=== PATIENT | male | born 1955 | race Hispanic/Latino ===

== ENCOUNTER 2017-06-12 12:40 | Observation (INO) ==
[2017-06-12] MEDS ORDERED: NITROGLYCERIN 0.4 MG SL TAB (BOTTLE OF 3) SL PRN (12:55)
[2017-06-12] MEDS ORDERED: NORMAL SALINE 10 ML SYRINGE FLUSH IVP PRN ×2 (12:55→14:30)
[2017-06-12] MEDS ORDERED: ASPIRIN 81 MG (BABY) CHEWABLE TABLET PO ONE (12:55)
--- NOTE | 2017-06-12 12:58 | EKG ---
[address] [address] Measurements Intervals [place] Rate: 81 P: 46 NV: 156 QRS: 11 QRSD: 105 T: 203 QT: 372 QTc: 409 Interpretive Statements SINUS RHYTHM WANDERING BASELINE NONSPECIFIC T-WAVE ABNORMALITY No previous ECG available for comparison Electronically Signed On 06-15-17 15:01:39 MDT by Gianni Almonte [id number]
[2017-06-12 13:10] LABS: BASOPHILS # (AUTO) 0.02 10*3/UL; BASOPHILS % (AUTO) 0.2 % (0-1); EOSINOPHILS # (AUTO) 0.34 10*3/UL; EOSINOPHILS % (AUTO) 4.1 % (0-8); Hematocrit [HCT] 51.2 % (42.0-52.0); Hemoglobin [HGB] 17.5 g/dL (14.0-18.0); LYMPHOCYTES # (AUTO) 2.74 10*3/uL; MEAN CORPUSCULAR HEMOGLOBIN 28.5 PG (27-31); MEAN CORPUSCULAR HGB CONC 34.2 g/dL (33-37); MEAN CORPUSCULAR VOLUME 83.5 FL (80-90); MEAN PLATELET VOLUME 9.8 FL (7.4-12.2); MONOCYTES # (AUTO) 0.51 10*3/UL (0.3-0.8); MONOCYTES % (AUTO) 6.2 % (5-15); NEUTROPHILS # (AUTO) 4.65 10*3/UL; RED BLOOD COUNT 6.13 10^6/uL (4.70-6.10)
[2017-06-12 13:12] LABS: PLATELET MORPHOLOGY COMMENT NORMAL MORPHOLOGY (NORM); RBC MORPHOLOGY COMMENT NORMAL MORPHOLOGY (NORM); WBC MORPHOLOGY COMMENT NORMAL MORPHOLOGY (NORM)
[2017-06-12] MEDS ORDERED: Sodium Chloride 0.9% 1,000 ML PRIMARY IV ONE (13:15)
[2017-06-12 13:17] LABS: MAGNESIUM 1.8 mg/dL (1.6-2.4)
--- NOTE | 2017-06-12 13:21 | DI ---
XR CXR 1VW,06/12/2017 12:56 PM: Clinical History: Chest pain Previous Exam: None at this facility. Findings: A single frontal radiograph of the chest is obtained, and demonstrate clear lungs. The cardiomediasti num and bony thorax are unremarkable. Overlying EKG leads are seen. Patient is status post sternotomy . Impression: No acute cardiopulmonary disease.
[2017-06-12 13:24] LABS: BLOOD UREA NITROGEN 15 mg/dL (7-22); BUN/CREATININE RATIO 16.66 (6-20); SERUM ALBUMIN 4.3 g/dL (3.5-4.8)
--- NOTE | 2017-06-12 13:28 | PDOC ---
Chest Pain HPI - General Chief Complaint: Chest Pain Stated Complaint: chest pain Date Seen by Provider: 06/12/17 Time Seen by Provider: 12:40 Source: Patient Exam Limitations: POSITIVE: No limitations Treatment Prior to Arrival: REPORTS: None Nurse's Notes Reviewed & Considered: Yes - History of Present Illness Initial Comments: The patient is a 61-year-old male who presents to the emergency department with chest pain. He states that he had onset of chest pain this morning at about 10 or 10:30. He states that the pain occurred while he was at rest. Initially the pain was about a 4-5 out of 10 however has intensified to about an 8 out of 10 currently. He does have some associated shortness of breath and lightheadedness. He denies any increased pain with taking a breath. He does report that he has had some intermittent similar chest pains for the past several weeks generally occurring at rest. The previous pains lasted less than a minute. He does have a known history of coronary artery disease and is status post bypass surgery in 2000. He has had multiple stents as well. He does take aspirin and Plavix and did take 1 baby aspirin this morning. The pain is primarily located in the center of his chest with some radiation to his left arm. He denies any increased pain or swelling in his legs. - Patient Home Medications Home Medications: Home Medications Aspirin 81 mg PO DAILY tab 02/13/16 Atorvastatin Calcium 0.5 tab PO BEDTIME tab 02/13/16 Carvedilol 1 tab PO BID tab 02/13/16 Clopidogrel Bisulfate [Clopidogrel] 1 tab PO DAILY tab 02/13/16 Clotrimazole 1 applic TOPICAL QD #1 tube 02/13/16 Fluoxetine HCl 1 cap PO DAILY cap 02/13/16 Lamotrigine [Lamotrigine Er] 100 mg PO DAILY tab 02/13/16 Pantoprazole Sodium 1 tab PO DAILY tab 02/13/16 Valsartan [Diovan] 80 mg PO DAILY tab 02/13/16 - Patient Allergies Allergies/Adverse Reactions: Allergies 3 Allergy/AdvReac Type Severity Reaction Status Date / Time cephalexin monohydrate Allergy Intermediate RASH Verified 06/12/17 12:56 [From Keflex] Past Medical History Past Medical History Reviewed: Other (please comment) (The patient admits a history of diabetes as well as coronary artery disease with previous bypass and stents) ROS - Limitations ROS Limitations: No Limitations Constitution: DENIES: Chills, Fever, Diaphoresis Cardiovascular: REPORTS: Chest Pain. DENIES: Heart Racing, Heart Palpitations, Edema Respiratory: REPORTS: Shortness Of Breath. DENIES: Hurts To Breathe Neurological: REPORTS: Denies Neuro Symptoms Gastrointestinal: REPORTS: Denies GI Symptoms Endocrine: REPORTS: Denies Symptoms Musculoskeletal: REPORTS: Denies MS Symptoms Eyes: REPORTS: Denies Symptoms ENT: REPORTS: Denies Symptoms Skin: REPORTS: Denies Skin Symptoms. DENIES: Rash Chest Pain PE - General Appearance General Appearance: REPORTS: Alert, Cooperative, No Acute Distress - HEENT HEENT: POSITIVE: Head Inspection Nml, Eyes Inspection Nml, Ears Inspection Nml, Nose Inspection Nml, Pharynx Inspect. Nml - Neck Neck: REPORTS: Normal Inspection. DENIES: JVD Present - Respiratory Respiratory: REPORTS: No Respiratory Distress, Breath Sounds Normal - Cardiovascular Cardiovascular: REPORTS: Regular Rate and Rhythm, Heart Sounds Normal Peripheral Pulses: Dorsalis-pedis (R): 2+, Dorsalis-pedis (L): 2+ - Skin Skin: REPORTS: Intact, No Rash - Extremities Extremity: Normal ROM: (All Extremities), Normal Inspection: (All Extremities) - Neurological / Psychological Neurological: POSITIVE: Oriented X3, Motor Normal, Sensation Normal Chest Pain Progress - Results Reviewed by me Xrays/CTs/US Reviewed by me: Yes Discussed with Radiologist: Yes Radiology Findings: Chest x-ray shows no acute cardiopulmonary abnormality per radiologist. Lab Results Reviewed by Me: Yes CBC and BMP: 06/12/17 12:49 06/12/17 12:49 EKG Interpreted/Reviewed By Me:: Yes EKG Interpretation:: POSITIVE: Normal Sinus Rhythm, Normal Rate, Normal QRS, Normal ST/T, Other (No obvious ST segment or T-wave changes on his EKG, no previous are available for comparison) - Patient's Progress MDM / ED Course: On arrival the patient's pain was approximately 8 out of 10. His blood pressure was elevated at 170/90. His initial EKG shows no obvious ST segment changes. He did receive 4 baby aspirin as well as sublingual nitroglycerin. His pain persisted however did come down slightly after administration of nitroglycerin. His chest x-ray shows normal heart size and normal lung knowles with no acute cardiopulmonary findings per radiologist. His lab work is all essentially unremarkable with a normal d-dimer and normal troponin, blood sugar is mildly elevated in the 170s. His blood pressure did come down into the 140s systolic however the diastolic remained elevated at 114 after nitroglycerin. The patient does admit that he has not taken his carvedilol for the past couple of days as he was waiting for his prescription to come in the mail. All these findings are discussed with the patient. It was recommended that the patient be admitted for continued cardiac monitoring. Dr. Calero has agreed to admit the patient and the patient is in agreement with this plan. - Consult Counseled: POSITIVE: Patient, Family, RE: Lab Results, RE: Radiology Results, RE : DX, RE: Need for F/U Patient Care Time - Estimated PCT Patient Care Time (In Minutes): 35 Vital Signs - Recent Vital Signs Vital Signs: Vital Signs (Last 8 hours) Temp Pulse Resp BP Pulse Ox 06/12/17 12:54 97.4 F 82 20 170/87 95 - VS Reviewed Vital Signs Reviewed: Yes Discharge Clinical Impression: Chest pain Discharge Disposition: Admit to Observation Condition: Fair Follow Up With: NONE,NONE [Primary Care Provider] -
--- NOTE | 2017-06-12 14:28 | PDOC ---
HPI - History of Present Illness Chief Complaint: Chest pain History of Present Illness: This very nice 61-year-old gentleman past medical history significant for coronary artery disease and is status post bypass surgery in 2000. He also has multiple stents. He does takes aspirin and Plavix and cholesterol medication. He comes to the ER because of new onset of chest pain this morning around 10:00 was at rest started mild around 3 [place] and intensified to 8-9 out of 10 and have some shortness of breath and lightheadedness associated with it but no radiation to left arm or neck he states that this happened also intermittently for the last couple weeks he will come into the hospital to rule out a Lexiscan stress test is chest pain-free at present time Past Medical History Medical History: Coronary artery disease, GERD, diabetes Surgical History: Bypass surgery in 2000 and multiple stents Tobacco Use: Former Smoker In the Past 12 Months, Have Used or Abuse Any of the Following Substance: None Medication / Allergies Home Medications: Home Medications Medication Instructions Recorded Confirmed Type Aspirin 81 mg PO DAILY tab 02/13/16 06/12/17 History Atorvastatin Calcium 0.5 tab PO BEDTIME tab 02/13/16 06/12/17 History Carvedilol 1 tab PO BID tab 02/13/16 06/12/17 History Clopidogrel Bisulfate [Clopidogrel] 1 tab PO DAILY tab 02/13/16 06/12/17 History Clotrimazole 1 applic TOPICAL QD #1 tube 02/13/16 06/12/17 History Fluoxetine HCl 1 cap PO DAILY cap 02/13/16 06/12/17 History Lamotrigine [Lamotrigine Er] 100 mg PO DAILY tab 02/13/16 06/12/17 History Pantoprazole Sodium 1 tab PO DAILY tab 02/13/16 06/12/17 History Valsartan [Diovan] 80 mg PO DAILY tab 02/13/16 06/12/17 History Insulin Detemir [Levemir] 12 unit SUBCUT BID 06/12/17 06/12/17 History Allergies/Adverse Reactions: Allergies 3 Allergy/AdvReac Type Severity Reaction Status Date / Time cephalexin monohydrate Allergy Intermediate RASH Verified 06/12/17 12:56 [From Keflex] Review of Systems - Review of Systems All Systems: Reviewed & No Additional Complaints Except as Stated - Eye Exam Eye Exam: REPORTS: Negative System Review - Ear/Nose Exam Ear/Nose Exam: REPORTS: Negative System Review - Respiratory Respiratory: DENIES: Negative System Review, Cough, Sputum, Dyspnea At Rest, Dyspnea with Exertion, Pleuritic Pain, Hemoptysis, Wheezing, Other, See HPI - Cardiovascular Cardiovascular: REPORTS: Chest Pain. DENIES: Edema, Syncope, Palpitations - Gastrointestinal Gastrointestinal / Abdominal: DENIES: Negative System Review, Nausea, Vomiting, Diarrhea, Constipation, Abdominal Pain, Bloody Stool, Poor Appetite, Heartburn, Regurgitation, Bloating, Lactose Intolerance, Melena, Bright Red Blood per Rectum, Other, See HPI - Genitourinary Genitourinary: REPORTS: Negative System Review - Neurological Neurologic: DENIES: Negative System Review, Headache, Numbness/Paresthesia, Tremors, Weakness, Seizures, Head Trauma, LOC, Dizziness, Confusion, Memory Loss , Difficulty Walking, Incoordination, Other, See HPI Exam - Vitals Vital Signs: Vital Signs Temperature 97.4 F Pulse Rate [Pulse Oximeter 82 Left] Respiratory Rate 20 Blood Pressure [Right Radial 170/87 Artery] Pulse Ox 95 Oxygen Delivery Method Room Air Height 5 ft 6 in Weight 250 lb - General General Appearance: No Acute Distress, Cooperative - Head Head Exam: Normocephalic, Atraumatic - Eye Eye Exam: POSITIVE: Normal Appearance, PERRL, EOMI - Respiratory Respiratory Exam: POSITIVE: Clear to Auscultation - Bilaterally, Breathing Non Labored, Normal To Percussion - Cardiovascular Cardiovascular Exam: POSITIVE: RRR, No Murmur, No Clicks - GI/Abdominal GI/Abdominal Exam: POSITIVE: Non Tender, Non Distended, Soft - Extremities Extremities Exam: POSITIVE: No Clubbing Present, No Edema Present, No Cyanosis Present - Neurological Neurological Exam: POSITIVE: Alert, Oriented x 3, CN II-XII Intact, No Facial Droop, Speech Intact / Clear Results - Labs CBC and BMP: 06/12/17 12:49 06/12/17 12:49 Assessment and Plan - Patient Problems (1) Coronary artery disease Current Visit: Yes Status: Acute Comment: Patient will be admitted for chest pain rule out on telemetry troponin every 63 will order Lexiscan stress test is positive consult cardiology for further planning and treatment resume all usual meds for other medical medical issues Code(s): I25.10 - Atherosclerotic heart disease of [place] coronary artery without angina pectoris
[2017-06-12] MEDS ORDERED: CALCIUM CARBONATE 500 MG (TUMS) CHEWABLE TABLET PO PRN (14:30)
[2017-06-12] MEDS ORDERED: CLOTRIMAZOLE 28.35 GM CREAM TOPICAL SCH (14:30)
[2017-06-12] MEDS ORDERED: ONDANSETRON 4 MG/2 ML VIAL IVP PRN (14:30)
[2017-06-12] MEDS ORDERED: MAG HYDROX/AL HYDROX/SIMETH 30 ML SUSP PO PRN (14:30)
[2017-06-12] MEDS ORDERED: PROMETHAZINE 25 MG/1 ML VIAL IM PRN (14:30)
[2017-06-12] MEDS ORDERED: LIDOCAINE W/ SODIUM BICARB 0.5 ML SYR SUBD PRN (14:30)
[2017-06-12] MEDS: MORPHINE SULFATE 2 MG/1 ML IV PRN ×2 (15:25→16:20)
[2017-06-12 15:54] VITALS: RESP 24; O2SAT 91
[2017-06-12] MEDS: NITROGLYCERIN 0.4 MG SL TAB (BOTTLE OF 3) SL PRN ×2 (16:54→17:02)
[2017-06-12 17:39] VITALS: BP 123/59; TEMP 98.2
[2017-06-12] MEDS ORDERED: ATORVASTATIN 40 MG TABLET PO SCH (21:00)
[2017-06-12] MEDS ORDERED: Insulin Detemir 300unit/3ml Flexpen SUBCUT SCH (21:00)
[2017-06-12] MEDS ORDERED: CARVEDILOL 12.5 MG TABLET PO SCH (21:00)
[2017-06-12] MEDS ORDERED: CARVEDILOL 6.25 MG TABLET PO SCH (21:00)
[2017-06-13] MEDS ORDERED: CLOPIDOGREL 75 MG TABLET PO SCH (09:00)
[2017-06-13] MEDS ORDERED: FLUoxetine 20 MG CAPSULE PO SCH (09:00)
[2017-06-13] MEDS ORDERED: VALSARTAN 80 MG PO SCH (09:00)
[2017-06-13] MEDS ORDERED: PANTOPRAZOLE 40 MG TABLET PO SCH (09:00)
[2017-06-13] MEDS ORDERED: ENOXAPARIN SODIUM 40 MG/0.4 ML SYRINGE SUBCUT SCH (09:00)
[2017-06-13] MEDS ORDERED: ASPIRIN 81 MG (BABY) CHEWABLE TABLET PO SCH (09:00)
== END 2017-06-12 17:51 | disposition short-term general hospital (02) ==
LOC: MED/SURG 12:40 → ER 12:40 → MED/SURG 14:15
PROVIDERS: ADMIT Internal Medicine; ATTEND Internal Medicine